=== PATIENT | female | born 1975 | race Caucasian/White ===

== ENCOUNTER 2019-03-11 23:14 | Emergency (ER) | payer BC ==
--- NOTE | 2019-03-11 23:50 | EDM.PDOC ---
ED HPI GENERAL MEDICAL PROBLEM - General Chief Complaint: Lower Extremity Injury/Pain Stated Complaint: INJURED LEFT ANKLE Time Seen by Provider: 03/11/19 23:30 Source of Information: Reports: Patient History Limitations: Reports: No Limitations - History of Present Illness INITIAL COMMENTS - FREE TEXT/NARRATIVE: 43 YO WF presents to ER complaining of left ankle pain after fall. Pt reports she was walking downstairs and lost her balance, inverting her ankle as she was going down the stairs. Pt denies any other injury or actually falling down the stairs. Pt with swelling to lateral aspect of left ankle. Pt denies foot or knee pain. Onset: Today Duration: Hour(s): (1) Location: Reports: Lower Extremity, Left Quality: Reports: Ache Severity: Mild Improves with: Reports: Rest Worsens with: Reports: Movement Associated Symptoms: Reports: No Other Symptoms Left Lower Ankle Pain Score (Numeric/FACES): 7 - Related Data Allergies Allergy/AdvReac Type Severity Reaction Status Date / Time No Known Allergies Allergy Verified 03/11/19 23:39 Home Meds: Home Meds Ibuprofen [Motrin] 600 mg PO Q6H #20 tab 03/12/19 [Rx] Review of Systems - Review of Systems Review Of Systems: See Below Constitutional: Reports: No Symptoms Eyes: Reports: No Symptoms Ears: Reports: No Symptoms Nose: Reports: No Symptoms Mouth/Throat: Reports: No Symptoms Respiratory: Reports: No Symptoms Cardiovascular: Reports: No Symptoms GI/Abdominal: Reports: No Symptoms Genitourinary: Reports: No Symptoms Skin: Reports: No Symptoms Neurological: Reports: No Symptoms (left ankle pain) Psychiatric: Reports: No Symptoms ED EXAM, GENERAL - Physical Exam Exam: See Below Exam Limited By: No Limitations General Appearance: Alert, WD/WN, No Apparent Distress Nose: Normal Inspection, Normal Mucosa, No Blood Throat/Mouth: Normal Inspection, Normal Lips, Normal Teeth, Normal Gums, Normal Oropharynx, Normal Voice, No Airway Compromise Head: Atraumatic, Normocephalic Neck: Normal Inspection, Supple, Non-Tender, Full Range of Motion Respiratory/Chest: No Respiratory Distress, Lungs Clear, Normal Breath Sounds, No Accessory Muscle Use, Chest Non-Tender Cardiovascular: Normal Peripheral Pulses, Regular Rate, Rhythm, No Edema, No Gallop, No JVD, No Murmur, No Rub GI/Abdominal: Normal Bowel Sounds, Soft, Non-Tender, No Organomegaly, No Distention, No Abnormal Bruit, No Mass Back Exam: Normal Inspection, Full Range of Motion, NT Extremities: No Pedal Edema, Normal Capillary Refill, Leg Pain, Other (swelling and pain to lateral aspect of left malleolous) Neurological: Alert, Oriented, CN II-XII Intact, Normal Cognition, Normal Gait, Normal Reflexes, No Motor/Sensory Deficits Psychiatric: Normal Affect Skin Exam: Warm, Dry, Intact, Normal Color, No Rash Lymphatic: No Adenopathy Course - Vital Signs Last Recorded V/S: Last Vital Signs Temp 37.4 C 03/11/19 23:19 Pulse Resp BP 142/56 H 03/11/19 23:19 Pulse Ox 97 03/11/19 23:19 - Orders/Labs/Meds Orders: Active Orders 24 hr Category Date Time Status Ankle Min 3V Lt [CR] Stat Exams 03/11/19 23:43 Ordered Foot Comp Min 3V Lt [CR] Stat Exams 03/11/19 23:43 Ordered - Radiology Interpretation Free Text/Narrative:: left ankle- NAD left foot-NAD Departure - Departure Time of Disposition: 00:06 Disposition: Home, Self-Care 01 Condition: Good Clinical Impression: Left ankle sprain Qualifiers: Encounter type: initial encounter - Discharge Information Prescriptions: Ibuprofen [Motrin] 600 mg PO Q6H #20 tab Instructions: Ankle Sprain, [id number] Referrals: Bonnie Elias PA-C [Primary Care Provider] - Forms: ED Department Discharge Additional Instructions: 1. discharge home 2. rest/ice/elevation/crutches 3. motrin 600mg every 6 hours as needed for pain 4. follow up with PCP for further evaluation and treatment 5. return to ER for worsening symptoms 6. no work til 03/16/2019 - My Orders Last 24 Hours: My Active Orders 03/11/19 23:43 Ankle Min 3V Lt [CR] Stat Foot Comp Min 3V Lt [CR] Stat - Assessment/Plan Last 24 Hours: My Active Orders 03/11/19 23:43 Ankle Min 3V Lt [CR] Stat Foot Comp Min 3V Lt [CR] Stat Assessment:: 1. left ankle sprain Plan: 1. discharge home 2. rest/ice/elevation/crutches 3. motrin 600mg every 6 hours as needed for pain 4. follow up with PCP for further evaluation and treatment 5. return to ER for worsening symptoms 6. no work til 03/16/2019
[2019-03-12] MEDS ORDERED: Ketorolac 60 MG/2 ML SDV IM ONE (00:14)
--- NOTE | 2019-03-12 08:33 | CR ---
[id number] RAD/RAD Foot Left 3V Min EXAM: RAD Foot Left 3V Min CLINICAL DATA: TRAUMA COMPARISON: NO PREVIOUS SIMILAR EXAM IS AVAILABLE. FINDINGS: No fracture or dislocation is seen. There is no radiopaque foreign body in the soft tissues. There is no air in the soft tissues. There is no cortical thickening or periosteal reaction either. IMPRESSION: NEGATIVE PLAIN FILM EXAM. Nahun Stephens MD 03/12/19 0829 Thank you for allowing us to participate in the care of your patient.
--- NOTE | 2019-03-12 08:35 | CR ---
[id number] RAD/RAD Ankle Left 3V Min EXAM: RAD Ankle Left 3V Min CLINICAL DATA: TRAUMA COMPARISON: NO PREVIOUS SIMILAR EXAM IS AVAILABLE. FINDINGS: Soft tissue swelling is seen No definite fracture or dislocation is seen. There is no radiopaque foreign body in the soft tissues. There is no air in the soft tissues. There is no cortical thickening or periosteal reaction either. IMPRESSION: NO FRACTURE IDENTIFIED CONSIDER CT IF NEEDED Nahun Stephens MD 03/12/19 0832 Thank you for allowing us to participate in the care of your patient.
== END 2019-03-12 00:45 | disposition home or self-care (01) ==
LOC: KA.ED 23:14
DX: S93.402A Sprain of unspecified ligament of left ankle, initial encounter (principal); X50.1XXA Overexertion from prolonged static or awkward postures, initial encounter
CPT/HCPCS: 73610-LT; 73630-LT; 96372; 99283-25; J1885